=== PATIENT | male | born 1950 | race Two or more races ===

== ENCOUNTER → 2024-10-24 | Outpatient (CLI) | payer MEDICARE, MEDICAID, SELFPAY ==
[2024-10-24 12:52] LABS: Basophils % (Auto) 1 % (0-2.5); Eosinophils # (Auto) 0.5 Thou/mm3 (0.0-0.5); Eosinophils % (Auto) 6 % (0-10); Hematocrit 43.2 % (41.0-53.0); Hemoglobin 14.6 g/dL (13.5-16.0); Immature Granulocytes % (Auto) 0 % (0-0); Immature Granulocytes Auto 0.02 Thou/mm3 (0.00-0.00); Lymphocytes # (Auto) 2.4 Thou/mm3 (1.0-4.8); Lymphocytes % (Auto) 28 % (10-50); Mean Corpuscular HGB Conc 33.8 g/dl (31.0-37.0); Mean Corpuscular Hemoglobin 32.8 pg (25.0-35.0); Mean Corpuscular Volume 97 fL (80-100); Monocytes # (Auto) 0.7 Thou/mm3 (0.0-0.8); Monocytes % (Auto) 8 % (0-12); Neutrophils # (Auto) 5.1 Thou/mm3 (1.8-7.7); Neutrophils % (Auto) 59 % (37-80); Nucleated Red Blood Cell % 0 /100 WBC (0); Platelet Count 223 Thou/mm3 (140-440); RDW Standard Deviation 43.7 fL (35.1-43.9); Red Blood Count 4.45 Miln/mm3 (4.50-5.90); White Blood Count 8.8 Thou/mm3 (3.8-10.6)
[2024-10-24 13:04] LABS: Vitamin B12 418 pg/mL (211-911)
[2024-10-24 13:38] LABS: Alanine Aminotransferase 17 U/L (10-49); Albumin, Serum 4.6 gm/dL (3.4-4.8); Alkaline Phosphatase 96 U/L (46-116); Anion Gap 7 (7-16); Aspartate Amino Transferase 13 U/L (0-34); BUN/Creatinine Ratio 19 Ratio (12-20); Bilirubin,Total 0.9 mg/dL (0.3-1.2); Blood Urea Nitrogen 13 mg/dL (9-23); Calcium 9.8 mg/dL (8.3-10.6); Calcium (Corrected) 9.8 mg/dL (8.5-10.1); Carbon Dioxide 30.2 mMol/L (20.0-31.0); Chloride 103 mMol/L (98-107); Creatinine (Component) 0.7 mg/dL (0.6-1.3); Globulin 2.3 gm/dL (2.3-3.5); Glucose 77 mg/dL (74-106); Osmolality,Calculated 278 (275-295); Potassium 4.4 mMol/L (3.4-5.1); Sodium 140 mMol/L (136-145); Thyroid Stimulating Hormone 2.86 uIU/mL (0.55-4.78); Total Protein 6.9 gm/dL (5.7-8.2); eGFR > 60 See Note
[2024-10-24 14:38] LABS: Syphilis Nonreactive (Nonreactive)
== END | disposition home or self-care (01) ==
PROVIDERS: PCP Family Medicine; Referring Provider Family Medicine; Visit Provider Family Medicine
DX: Z00.00 Encounter for general adult medical examination without abnormal findings (principal); F03.90 Unspecified dementia, unspecified severity, without behavioral disturbance, psychotic disturbance, mood disturbance, and anxiety; I10 Essential (primary) hypertension
CPT/HCPCS: 36415; 80053; 82607; 84443; 85025; 86780

== ENCOUNTER 2025-01-08 19:54 | Emergency (ER) | payer MEDICARE, MEDICAID, SELFPAY ==
[2025-01-08 20:07] VITALS: PULSE 64; RESP 16; O2SAT 97
[2025-01-08 20:11] VITALS: BP 163/103; PULSE 55; RESP 18; TEMP 37.4; O2SAT 95; BMI 31.9
--- NOTE | 2025-01-08 20:11 | PD.EDWOUND ---
ED Wound/Laceration-RME/HPI General Chief Complaint: Wound/Laceration Stated Complaint: GROUND LEVEL FALL Time Seen by Provider: 01/08/25 20:10 Arrival date/time: 01/08/25 19:54 RME / HPI RME / HPI narrative: This section includes all my notes and documentations, including HPI, PE, and ED course. Benny Pedro MD HPI: 74-year-old male here to be treated for left eyebrow laceration. Fell at home just prior to arrival. Patient is a hospice patient. Family request no other evaluation or treatment. No other complaints. ROS: All negative except as documented in HPI. Physical Exam: General: Alert. Eyes: Conjunctivae and lids clear. ENT: No nasal congestion. Neck: Supple. Lungs: No respiratory distress. Skin: Warm and dry. Over the left eyebrow, there is a 4.5 cm full?skin thickness laceration that is jagged with active bleeding. Neuro: Alert. Laceration repair procedure note: The wound was prepped and draped in normal sterile fashion. Local anesthesia achieved with 1% lidocaine, 5 mL. Profuse irrigation performed with normal saline. Wound repaired with 2 simple sutures using 4-0 nylon and 7 tanisha. Good approximation and hemostasis achieved. Tdap and Unasyn given. Topical ABX and dressing applied. Patient tolerated well with no complications. Provided good wound care instructions. Based on my best medical judgment, made decision no further evaluation or treatment indicated at this time. Son understands and agrees to the discharge instructions customized and printed, see below. Discharge instructions from Dr. Pedro:? -- Your laceration was repaired with 7 tanisha and 2 stitches. -- Keep the current dressing intact for 24 hours. -- After 24 hours, change the dressing once daily. -- First remove the dressing gently.? If it does not come off easily, run water through it until it comes off easily. -- Then gently wash with soap and water. -- After completely drying, apply antibiotic ointment and new dressing. -- See your doctor or return here in 7 days to remove 7 tanisha and 2 stitches. -- Seek immediate medical care with fever, spreading redness from the wound, or with any concerns. Instrucciones de bridger del Dr. Pedro: -- Chen laceraci?n se repar? con 7 grapas y 2 puntos. -- Mantenga el ap?sito actual intacto adarsh 24 horas. -- Despu?s de 24 horas, cambie el ap?sito rebeka vez al d?a. -- Jarrett retire el ap?sito con cuidado. Si no se desprende f?cilmente, l?velo con agua hasta que se desprenda f?cilmente. -- Luego, lave suavemente con agua y jab?n. -- Despu?s de secar completamente, aplique sarah?ento antibi?shruthi y un ap?sito nuevo. -- Consulte a chen m?dico o regrese aqu? en 7 d?as para que le retiren las 7 grapas y los 2 puntos. -- Busque atenci?n m?dica inmediata si tiene fiebre, enrojecimiento que se extiende de la herida o cualquier otra inquietud. Benny Pedro MD Related Data Home Medications ?Medication ?Instructions ?Recorded ?Confirmed atorvastatin 20 mg tablet 20 mg PO HS 01/11/23 01/11/23 diclofenac sodium 1 % topical gel 1 ea topical TID 01/11/23 01/11/23 fluoxetine 40 mg capsule 40 mg PO QDAY 01/11/23 01/11/23 lisinopril 5 mg tablet 5 mg PO DAILY 01/11/23 01/11/23 memantine 5 mg tablet 5 mg PO QDAY 01/11/23 01/11/23 tamsulosin 0.4 mg capsule 0.4 mg PO QDAY 01/11/23 01/11/23 valproic acid (as sodium salt) 250 250 mg PO BID 01/11/23 01/11/23 mg/5 mL oral solution Allergies Allergy/AdvReac Type Severity Reaction Status Date / Time No Known Allergies Allergy Verified 01/08/25 20:06 Course Quality Measures none Orders Category Date Time Status Wound Care [Wound Care] NOW Care 01/08/25 20:11 Completed Ampicillin/Sulbac Inj [Unasyn Inj] 1.5 gm Med 01/08/25 20:58 Discontinued SODIUM CHLORIDE 0.9% (Popper) [Ns 0.9% (P)] 50 ml IV X1 Bacitracin Oint pkt Med 01/08/25 20:11 Discontinued 1 gm TOP X1 ONE Lidocaine 1% 20 ml [Xylocaine 1% 20 ML] Med 01/08/25 20:11 Discontinued 20 ml INFL X1 ONE TET,DIP/PERT AC (Adult)-Tdap [Boostrix Adult (Tdap) Med 01/08/25 20:11 Discontinued Vacc] 0.5 ml IMI .ONCE ONE Vital Signs Vital signs: Vital Signs Temperature 99.3 F 01/08/25 20:11 Pulse Rate 55 L 01/08/25 20:11 Respiratory Rate 18 01/08/25 20:11 Blood Pressure 163/103 H 01/08/25 20:11 Pulse Oximetry (%) 95 01/08/25 20:11 Oxygen Delivery Method Room Air 01/08/25 20:11 Wound / Laceration Patient data External records reviewed:: [facility] previous records and EMS form Clinical information provided by:: EMS and family Social determinants that could affect healthcare access:: other (specify) (Severe dementia) Patient has the following chronic illnesses:: Severe dementia How is presenting disease/condition affected by chronic disease/condition?: exacerbated by Evaluation data The following diagnostics were reviewed and interpreted by me:: other (specify) (No diagnostics ordered.) Lab and/or radiology exams considered but not ordered:: None Interpretation Summary: No diagnostics ordered. Medications / Prescriptions Medications or Prescriptions considered but not ordered:: None Medication administrations:: Medication Administration History Discontinued Medications Bacitracin (Bacitracin Oint 1 Gm Packet) 1 gm TOP X1 ONE Stop: 01/08/25 20:12 Last Admin: 01/08/25 20:23 Dose: 1 gm Documented By: PINOR Diphtheria/Tetanus/Acell Pertussis (Diphth,Pertuss(Acell),Tet Vac 0.5 Ml Syr- Adult) 0.5 ml IMi .ONCE ONE Stop: 01/08/25 20:12 Last Admin: 01/08/25 20:38 Dose: 0.5 ml Documented By: PINOR Ampicillin Sodium/Sulbactam (Sodium 1.5 gm/ Sodium Chloride) 50 mls @ 100 mls/hr IV X1 ONE Stop: 01/08/25 20:59 Last Admin: 01/08/25 21:06 Dose: 100 mls/hr Documented By: PAPO Lidocaine HCl (Lidocaine Hcl 1% 20 Ml Vial) 20 ml INFL X1 ONE Stop: 01/08/25 20:12 Last Admin: 01/08/25 20:23 Dose: 20 ml Documented By: PAPO Tdap and Unasyn and wound care with bacitracin. Consultations Consultation(s) initiated? (list below): No Diagnosis Wound Differential Diagnosis: laceration, abrasion and avulsion of skin Most likely diagnosis given after review of the tests above:: Left eyebrow laceration. Admission Indicated Admission indicated?: not indicated Explain why admission is indicated or not indicated:: There was no indication for admission. Admission Request Was there a request for admission?: No Disposition Plan Disposition Plan: Discharge Discharge Attestation Discharge Attestation: The patient and all family members were given an opportunity to ask questions and understood the discharge instructions. Discharge instructions specifically effects, indications for sooner follow up or return to the emergency department, and the expected course of current diagnosis. Patient condition: Stable Discharge Plan Plan Patient Disposition: HOME (Self Care) Prescriptions/Referrals Prescriptions/Med Rec: No Action fluoxetine 40 mg capsule 40 mg PO QDAY Patient Comments: TOME REBEKA C PSULA TODOS LOS D PARA DEPRESSION atorvastatin 20 mg tablet 20 mg PO HS Patient Comments: TOME REBEKA TABLETA TODOS LOS D EN LA NOCHE tamsulosin 0.4 mg capsule 0.4 mg PO QDAY Patient Comments: TAKE 1 CAPSULE (0.4 MG) BY ORAL ROUTE ONCE DAILY FOR ENLARGED PROSTATE valproic acid (as sodium salt) 250 mg/5 mL solution 250 mg PO BID Patient Comments: TAKE 5ML POR V A ORAL DOS VECES AL D A lisinopril 5 mg tablet 5 mg PO DAILY Patient Comments: TAKE 1 TABLET (5 MG) BY ORAL ROUTE ONCE DAILY FOR HIGH BLOOD PRESSURE memantine 5 mg tablet 5 mg PO QDAY Patient Comments: TAKE 1 TABLET (5 MG) BY ORAL ROUTE ONCE NIGHTLY FOR DEMENTIA diclofenac sodium 1 % gel 1 ea TOPICAL TID Patient Comments: APPLY 2 GRAMS TO THE AFFECTED AREA(S) BY TOPICAL ROUTE 1-3 TIMES PER DAY Problem List Clinical Impression: Laceration of left eyebrow Patient/Caregiver Discharge Instructions Discharge Activity: activity as tolerated Education Materials: ED Laceration: All Closures Additional Instructions: Discharge instructions from Dr. Pedro:? -- Your laceration was repaired with 7 tanisha and 2 stitches. -- Keep the current dressing intact for 24 hours. -- After 24 hours, change the dressing once daily. -- First remove the dressing gently.? If it does not come off easily, run water through it until it comes off easily. -- Then gently wash with soap and water. -- After completely drying, apply antibiotic ointment and new dressing. -- See your doctor or return here in 7 days to remove 7 tanisha and 2 stitches. -- Seek immediate medical care with fever, spreading redness from the wound, or with any concerns. Instrucciones de bridger del Dr. Pedro: -- Chen laceraci?n se repar? con 7 grapas y 2 puntos. -- Mantenga el ap?sito actual intacto adarsh 24 horas. -- Despu?s de 24 horas, cambie el ap?sito rebeka vez al d?a. -- Jarrett retire el ap?sito con cuidado. Si no se desprende f?cilmente, l?velo con agua hasta que se desprenda f?cilmente. -- Luego, lave suavemente con agua y jab?n. -- Despu?s de secar completamente, aplique sarah?ento antibi?shruthi y un ap?sito nuevo. -- Consulte a chen m?dico o regrese aqu? en 7 d?as para que le retiren las 7 grapas y los 2 puntos. -- Busque atenci?n m?dica inmediata si tiene fiebre, enrojecimiento que se extiende de la herida o cualquier otra inquietud. Print Language: Bengali Stand Alone Forms: Lorna Award Info., Patient Portal Info Letter
[2025-01-08] MEDS: LIDOCAINE HCL 1% 20 ML VIAL INFL (20:23)
[2025-01-08] MEDS: BACITRACIN OINT 1 GM PACKET TOP (20:23)
[2025-01-08] MEDS: DIPHTH,PERTUSS(ACELL),TET VAC 0.5 ML SYR- ADULT IMi (20:38)
--- NOTE | 2025-01-08 20:42 | PC.NURSE ---
Provider Mayela in room now, placing tanisha in LAC
[2025-01-08] MEDS: AMPICILLIN/SULBAC INJ 1.5 GM in SODIUM CHLORIDE 0.9% (Popper) 50 ML IV (21:06)
[2025-01-08 21:48] VITALS: BP 142/86; PULSE 58; RESP 17; O2SAT 95
== END 2025-01-08 21:50 | disposition home or self-care (01) ==
LOC: SERX 21:10
PROVIDERS: Emergency Provider Emergency Medicine; PCP Family Medicine
DX: S01.112A Laceration without foreign body of left eyelid and periocular area, initial encounter (principal); W18.30XA Fall on same level, unspecified, initial encounter; Y92.009 Unspecified place in unspecified non-institutional (private) residence as the place of occurrence of the external cause; Z23 Encounter for immunization
CPT/HCPCS: 12013; 90471; 90715; 99284; J0295; J3490; J7050; A9270